=== PATIENT | female | born 1980 | race Caucasian/White ===

== ENCOUNTER 2016-10-07 17:45 | Emergency (ER) | payer SELFPAY ==
[~2016-10-07] VITALS: Ht 157.5 cm; Wt 90.0 kg
[~2016-10-07 17:45] MED LIST: IBUP-1546 PO
[2016-10-07] MEDS ORDERED: ASPI1TAB PO (18:19)
[2016-10-07 19:45] VITALS: BP 118/78
== END 2016-10-07 20:27 | disposition left against medical advice (07) ==
LOC: EMS 17:46
DX: R51 Headache (principal); H92.01 Otalgia, right ear; H92.02 Otalgia, left ear; Z53.21 Procedure and treatment not carried out due to patient leaving prior to being seen by health care provider

== ENCOUNTER 2017-01-21 21:59 | Emergency (ER) | payer MEDICAID ==
[~2017-01-21] VITALS: Ht 157.5 cm; Wt 85.0 kg
[~2017-01-21 21:59] MED LIST changes: +ASPI1TAB PO; -IBUP-1546 PO
[2017-01-21] MEDS ORDERED: HYDROCODONE/ACETAMINOPHEN 5-325 MG TABLET PO ONE (22:45)
[2017-01-21] MEDS ORDERED: IBUPROFEN 600 MG TABLET PO ONE (22:45)
[2017-01-21 23:42] VITALS: BP 126/79
== END 2017-01-21 23:44 | disposition home or self-care (01) ==
LOC: EMS 22:01
DX: S93.602A Unspecified sprain of left foot, initial encounter (principal); F17.210 Nicotine dependence, cigarettes, uncomplicated; Z88.0 Allergy status to penicillin; W01.0XXA Fall on same level from slipping, tripping and stumbling without subsequent striking against object, initial encounter; Y93.89 Activity, other specified; Y92.89 Other specified places as the place of occurrence of the external cause; Y99.8 Other external cause status
CPT/HCPCS: 99284; 99406

== ENCOUNTER 2017-03-21 10:31 | Emergency (ER) | payer MEDICAID ==
[~2017-03-21] VITALS: Ht 154.9 cm; Wt 87.7 kg
[2017-03-21] MEDS ORDERED: KETOROLAC TROMETHAMINE 60 MG/2 ML VIAL IM ONE (13:30)
[2017-03-21] MEDS ORDERED: METHOCARBAMOL 500 MG TABLET PO ONE (13:30)
[2017-03-21 13:55] LABS: APPEARANCE,URINE CLOUDY (CLEAR); GLUCOSE, URINE (UA) NEGATIVE (NEGATIVE); KETONES,URINE NEGATIVE (NEGATIVE); OCCULT BLOOD,URINE NEGATIVE (NEGATIVE); PH,URINE 6.5 (5.0-8.0); PROTEIN,URINE NEGATIVE (NEGATIVE)
[2017-03-21 13:56] LABS: ADD UA MICROSCOPIC YES; LEUKOCYTE ESTERASE ,URINE SMALL (NEGATIVE)
[2017-03-21 14:39] VITALS: BP 120/71
[2017-03-21 14:44] LABS: RBC,URINE 0-2 /HPF (0-2)
[2017-03-21 14:45] LABS: SQUAMOUS EPITHELIAL CELL,UR Few /LPF (None Seen)
== END 2017-03-21 15:21 | disposition home or self-care (01) ==
LOC: EMS 10:33
DX: N76.0 Acute vaginitis (principal); L24.9 Irritant contact dermatitis, unspecified cause; L98.9 Disorder of the skin and subcutaneous tissue, unspecified; F17.210 Nicotine dependence, cigarettes, uncomplicated; Z88.0 Allergy status to penicillin
CPT/HCPCS: 81001; 81025; 87077; 87086; 87186; 96372; 99284; J1885

== ENCOUNTER 2017-04-18 18:02 | Emergency (ER) | payer MEDICAID ==
[~2017-04-18] VITALS: Ht 157.5 cm; Wt 90.9 kg
[2017-04-18] MEDS ORDERED: SUMA25TA9 PO (18:19)
[2017-04-18] MEDS ORDERED: MORPHINE SULFATE 4 MG/ML SYRINGE IM ONE (20:30)
[2017-04-18] MEDS ORDERED: PROCHLORPERAZINE EDISYLATE 5 MG/ML 2 ML VIAL IM ONE (20:30)
[2017-04-18] MEDS ORDERED: DEXAMETHASONE SOD PHOS 4 MG/ML 5 ML VIAL IM ONE (20:30)
[2017-04-19 00:22] VITALS: BP 135/72
== END 2017-04-19 00:24 | disposition home or self-care (01) ==
LOC: EMS 18:03
DX: G43.909 Migraine, unspecified, not intractable, without status migrainosus (principal); F17.210 Nicotine dependence, cigarettes, uncomplicated; Z88.0 Allergy status to penicillin
CPT/HCPCS: 70450; 81025; 96372; 99284; J0780; J1100; J2270

== ENCOUNTER 2017-10-02 20:24 | Emergency (ER) | payer MEDICAID ==
[~2017-10-02] VITALS: Ht 157.5 cm; Wt 90.9 kg
[~2017-10-02 20:24] MED LIST changes: -ASPI1TAB PO; +SUMA25TA9 PO
[2017-10-02 22:00] LABS: BASOPHILS % (AUTO) 0.6 % (0.0-2.0); EOSINOPHILS % (AUTO) 0.7 % (1.0-6.0); HEMATOCRIT 44.4 % (36-46); HEMOGLOBIN 15.2 g/dL (12.0-16.0); LYMPHOCYTES # (AUTO) 2.5 K/uL (1.0-4.8); LYMPHOCYTES % (AUTO) 32.7 % (22.0-44.0); MEAN CORPUSCULAR HEMOGLOBIN 29.6 pg (26.0-34.0); MEAN CORPUSCULAR HGB CONC 34.2 G/dL (31.0-37.0); MEAN CORPUSCULAR VOLUME 87 fL (80-100); MONOCYTES # (AUTO) 0.5 K/uL (0.1-1.0); NEUTROPHILS # (AUTO) 4.5 K/uL (1.8-7.7); PLATELET COUNT (AUTO) 243 K/uL (150-450); RED BLOOD CELL COUNT(AUTO) 5.12 MIL/uL (4.00-5.20); RED CELL DISTRIBUTION WIDTH 12.6 % (11.5-14.5)
[2017-10-02] MEDS ORDERED: PROCHLORPERAZINE EDISYLATE 5 MG/ML 2 ML VIAL IVP ONE (22:00)
[2017-10-02] MEDS ORDERED: KETOROLAC TROMETHAMINE 30 MG/ML VIAL IVP ONE (22:00)
[2017-10-02] MEDS ORDERED: MORPHINE SULFATE 4 MG/ML SYRINGE IVP ONE (22:00)
[2017-10-02] MEDS ORDERED: VALPROATE SODIUM 500 MG in DEXTROSE 5%-WATER 50 ML IV ONE (22:00)
[2017-10-02 22:08] LABS: ANION GAP 7 mmol/L (8-16); CALCIUM, TOTAL 9.3 mg/dL (8.8-10.5); CARBON DIOXIDE 29 mmol/L (22-29); CHLORIDE 99 mmol/L (98-107); GLOMERULAR FILTR. RATE CALC > 60 mL/min (>60); GLUCOSE,RANDOM 121 mg/dL (70-110); POTASSIUM 3.5 mmol/L (3.5-5.1); SODIUM SERUM 135 mmol/L (136-145); UREA NITROGEN, BLOOD 13 mg/dL (7-18)
[2017-10-02 22:14] LABS: ALANINE AMINOTRANSFERASE 63 U/L (12-78); ALBUMIN 4.2 g/dL (3.4-5.0); ALKALINE PHOSPHATASE 80 U/L (46-116); ASPARTATE AMINOTRANSFERASE 25 U/L (15-37); BILIRUBIN,TOTAL 0.5 mg/dL (0.1-1.0); TOTAL PROTEIN, SERUM 7.8 g/dL (6.4-8.2)
[2017-10-02 23:41] VITALS: BP 130/82
== END 2017-10-02 23:44 | disposition home or self-care (01) ==
LOC: EMS 20:25
DX: G43.009 Migraine without aura, not intractable, without status migrainosus (principal); H53.149 Visual discomfort, unspecified; F17.210 Nicotine dependence, cigarettes, uncomplicated; Z88.0 Allergy status to penicillin
CPT/HCPCS: 36415; 80053; 84703; 85025; 96365; 96375; 99284; J0780; J1885; J2270; J3490; J7060

== ENCOUNTER 2017-10-11 11:22 | Emergency (ER) | payer MEDICAID ==
[~2017-10-11] VITALS: Ht 157.5 cm; Wt 90.9 kg
[2017-10-11 13:56] LABS: INFLUENZA TYPE A POSITIVE FOR TYPE A (NEGATIVE); INFLUENZA TYPE B NEGATIVE FOR TYPE B (NEGATIVE)
[2017-10-11 14:09] VITALS: BP 131/75
== END 2017-10-11 14:21 | disposition home or self-care (01) ==
LOC: EMS 11:23
DX: J11.1 Influenza due to unidentified influenza virus with other respiratory manifestations (principal); M79.1 Myalgia; F17.210 Nicotine dependence, cigarettes, uncomplicated; Z88.0 Allergy status to penicillin
CPT/HCPCS: 71046; 87804; 99285

== ENCOUNTER 2017-10-24 23:25 | Emergency (ER) | payer MEDICAID ==
[~2017-10-24] VITALS: Ht 157.5 cm; Wt 90.9 kg
[2017-10-24] MEDS ORDERED: IBUP-2354 PO (23:36)
[2017-10-24] MEDS ORDERED: SUMA100T PO (23:36)
[2017-10-25] MEDS ORDERED: DiphenhydrAMINE HCL 50 MG/ML VIAL IVP ONE
[2017-10-25] MEDS ORDERED: KETOROLAC TROMETHAMINE 30 MG/ML VIAL IVP ONE
[2017-10-25] MEDS ORDERED: METOCLOPRAMIDE HCL 5 MG/ML 2 ML VIAL IM ONE
[2017-10-25] MEDS ORDERED: SUMAtriptan SUCCINATE 6 MG/0.5 ML VIAL SQ ONE (01:00)
[2017-10-25 02:34] VITALS: BP 113/69
== END 2017-10-25 02:42 | disposition home or self-care (01) ==
LOC: EMS 23:26
DX: G43.909 Migraine, unspecified, not intractable, without status migrainosus (principal); H53.149 Visual discomfort, unspecified; F17.210 Nicotine dependence, cigarettes, uncomplicated; Z88.0 Allergy status to penicillin
CPT/HCPCS: 96372; 96374; 96375; 99284; J1200; J1885; J2765; J3030

== ENCOUNTER 2022-05-07 18:23 | Emergency (ER) | payer MEDICAID ==
[~2022-05-07] VITALS: Ht 154.9 cm; Wt 90.9 kg
[~2022-05-07 18:23] MED LIST changes: +IBUP-2759 PO; +SUMA100T PO; -SUMA25TA9 PO
[2022-05-07 18:31] VITALS: BP 119/91
== END 2022-05-07 19:12 | disposition left against medical advice (07) ==
LOC: EMS 18:33
DX: Z53.21 Procedure and treatment not carried out due to patient leaving prior to being seen by health care provider (principal)

== ENCOUNTER 2023-01-19 09:07 | Emergency (ER) | payer MEDICAID ==
[~2023-01-19] VITALS: Ht 157.5 cm; Wt 90.9 kg
[2023-01-19 09:09] VITALS: BP 139/75
[2023-01-19] MEDS ORDERED: SUMA25TA9 PO (09:13)
[2023-01-19] MEDS ORDERED: ACET-2247 PO (09:13)
[2023-01-19] MEDS ORDERED: LIDOCAINE 5% TRANSDERMAL PATCH TD ONE (10:00)
[2023-01-19] MEDS ORDERED: ACETAMINOPHEN 500 MG TABLET PO ONE (10:00)
[2023-01-19] MEDS ORDERED: KETOROLAC TROMETHAMINE 30 MG/ML VIAL IM ONE (10:00)
== END 2023-01-19 10:33 | disposition home or self-care (01) ==
LOC: EMS 09:09
DX: M54.16 Radiculopathy, lumbar region (principal); G43.909 Migraine, unspecified, not intractable, without status migrainosus; F17.210 Nicotine dependence, cigarettes, uncomplicated; Z88.0 Allergy status to penicillin
CPT/HCPCS: 99283; 96372; J1885

== ENCOUNTER 2024-07-18 09:36 | Emergency (ER) | payer MEDICAID, OTHER ==
[~2024-07-18] VITALS: Ht 160 cm; Wt 105.0 kg
[~2024-07-18 09:36] MED LIST changes: +ACET-2247 PO; -IBUP-2759 PO; -SUMA100T PO; +SUMA25TA15 PO
[2024-07-18 09:44] VITALS: TEMP 97.9
[2024-07-18] MEDS ORDERED: TIRZ2.5P SQ (09:47)
[2024-07-18] MEDS ORDERED: SODIUM CHLORIDE 0.9% 100 ML ONE (11:12)
[2024-07-18] MEDS ORDERED: IOHEXOL 350 MG/ML 100 ML VIAL ONE (11:12)
[2024-07-18 11:13] LABS: BASOPHILS % (AUTO) 0.6 % (0.0-2.0); HEMOGLOBIN 15.4 g/dL (12.0-16.0); LYMPHOCYTES # (AUTO) 1.8 K/uL (1.0-4.8); MEAN CORPUSCULAR HEMOGLOBIN 30.3 pg (26.0-34.0); MEAN CORPUSCULAR HGB CONC 34.3 G/dL (31.0-37.0); MEAN CORPUSCULAR VOLUME 89 fL (80-100); MONOCYTES # (AUTO) 0.5 K/uL (0.1-1.0); NEUTROPHILS # (AUTO) 3.5 K/uL (1.8-7.7); NEUTROPHILS % (AUTO) 60.4 % (40.0-70.0); PLATELET COUNT (AUTO) 255 K/uL (150-450); RED BLOOD CELL COUNT(AUTO) 5.08 MIL/uL (4.00-5.20); RED CELL DISTRIBUTION WIDTH 12.6 % (11.5-14.5); WHITE BLOOD COUNT (AUTO) 5.8 K/uL (4.5-11.0)
[2024-07-18 11:16] LABS: ANION GAP 5 mmol/L (8-16); CARBON DIOXIDE 28 mmol/L (22-29); CHLORIDE 103 mmol/L (98-107); CREATININE 0.59 mg/dL (0.60-1.30); GLOMERULAR FILTR. RATE CALC > 60 mL/min (>60); GLUCOSE,RANDOM 70 mg/dL (70-110); POTASSIUM 4.3 mmol/L (3.5-5.1); SODIUM SERUM 136 mmol/L (136-145); UREA NITROGEN, BLOOD 14 mg/dL (7-18)
[2024-07-18 11:22] LABS: ALANINE AMINOTRANSFERASE 21 U/L (12-78); ALBUMIN 3.9 g/dL (3.4-5.0); ALKALINE PHOSPHATASE 86 U/L (46-116); ASPARTATE AMINOTRANSFERASE 17 U/L (15-37); BILIRUBIN,TOTAL 0.3 mg/dL (0.1-1.0); LIPASE 90 U/L (16-77); TOTAL PROTEIN, SERUM 7.4 g/dL (6.4-8.2)
[2024-07-18] MEDS: ACETAMINOPHEN 500 MG TABLET PO ONE (11:24)
[2024-07-18] MEDS: SODIUM CHLORIDE 0.9% 1,000 ML IV ONE (11:33)
[2024-07-18] MEDS: KETOROLAC TROMETHAMINE 30 MG/ML VIAL IVP ONE (11:34)
[2024-07-18 12:09] LABS: APPEARANCE,URINE CLEAR (CLEAR); BILIRUBIN,URINE NEGATIVE (NEGATIVE); COLOR,URINE YELLOW (YELLOW); GLUCOSE, URINE (UA) NEGATIVE (NEGATIVE); KETONES,URINE NEGATIVE (NEGATIVE); LEUKOCYTE ESTERASE ,URINE MODERATE (NEGATIVE); NITRATE,URINE NEGATIVE (NEGATIVE); OCCULT BLOOD,URINE NEGATIVE (NEGATIVE); PROTEIN,URINE NEGATIVE (NEGATIVE); SPECIFIC GRAVITIY, URINE 1.026 (1.003-1.030); UROBILINOGEN,URINE <=1.0 mg/dL (<=1.0)
[2024-07-18 12:31] LABS: BACTERIA,URINE Many /HPF (None Seen); RBC,URINE 0-2 /HPF (0-2); SQUAMOUS EPITHELIAL CELL,UR Moderate /LPF (None Seen)
[2024-07-18] MEDS ORDERED: ACET-3385 PO (12:41)
[2024-07-18] MEDS ORDERED: LEVO750T68 PO (12:41)
[2024-07-18] MEDS ORDERED: IBUP-1492 PO (12:41)
[2024-07-18] MEDS: LEVOFLOXACIN 250 MG TABLET PO ONE (12:56)
[2024-07-18 13:38] VITALS: BP 118/82; PULSE 79; RESP 15; O2SAT 99
== END 2024-07-18 17:33 | disposition home or self-care (01) ==
LOC: EMS 09:36
DX: N12 Tubulo-interstitial nephritis, not specified as acute or chronic (principal); M54.50 Low back pain, unspecified; Z88.0 Allergy status to penicillin
CPT/HCPCS: 99285; 74177; 96374; 96361; 80048; 80076; 81001; 83690; 84703; 85025; 87077; 87086; 87186; 36415; Q9967; J1885; J7030; J7050